=== PATIENT | female | born 1990 | race Caucasian/White ===

== ENCOUNTER 2018-08-17 05:37 | Day surgery (SDC) | payer OTHER, MEDICAID ==
[2018-08-17] MEDS: ACETAMINOPHEN 500 MG TAB PO (07:13)
[2018-08-17] MEDS ORDERED: ROCURONIUM 50 MG INJ (07:18)
[2018-08-17] MEDS ORDERED: LIDOCAINE 2% (SDV) 5 ML INJ (07:18)
[2018-08-17] MEDS ORDERED: FENTAnyl 50 MCG/ML VIAL ×2 (07:18→08:32)
[2018-08-17] MEDS ORDERED: MIDAZOLAM 1 MG/ML 2 ML INJ (07:18)
[2018-08-17] MEDS ORDERED: PROPOFOL 20 ML ×2 (07:18→08:12)
[2018-08-17] MEDS ORDERED: ONDANSETRON 4 MG INJ (07:19)
[2018-08-17] MEDS ORDERED: FAMOTIDINE 20 MG INJ (07:19)
[2018-08-17] MEDS ORDERED: HYDROmorphONE 1 MG/5 ML IV SYRINGE IV (07:30)
[2018-08-17] MEDS ORDERED: DIPHENHYDRAMINE 50 MG INJ IV (07:30)
[2018-08-17] MEDS ORDERED: LABETALOL HCL 20MG INJ IV (07:30)
[2018-08-17] MEDS ORDERED: ALBUTEROL 0.083% (NEB) 2.5 MG/3 ML AMP HHN (07:30)
[2018-08-17] MEDS ORDERED: morphine (1 MG/ML) 10ML SYRINGE IV ×2 (07:30)
[2018-08-17] MEDS ORDERED: MEPERIDINE 25 MG INJ IV (07:30)
[2018-08-17] MEDS ORDERED: OXYCODONE/ACETAMINOPHEN (5/325) TAB PO ×2 (07:30)
[2018-08-17] MEDS ORDERED: FENTAnyl 50 MCG/ML VIAL IV ×2 (07:30)
[2018-08-17] MEDS ORDERED: ONDANSETRON 4 MG INJ IV (07:30)
[2018-08-17] MEDS ORDERED: DEXAMETHASONE 4 MG/ML 5 ML INJ (07:42)
[2018-08-17] MEDS: BUPIVACAINE 0.5%/EPI (SDV) 30 ML INJ (07:58)
[2018-08-17] MEDS ORDERED: GLYCOPYRROLATE 0.4 MG INJ (08:01)
[2018-08-17] MEDS ORDERED: NEOSTIGMINE 10 MG INJ (08:01)
[2018-08-17] MEDS: HYDROmorphONE 1 MG/5 ML IV SYRINGE IV (09:15)
== END 2018-08-17 10:30 | disposition home or self-care (01) ==
LOC: SDS 05:37
DX: Z30.2 Encounter for sterilization (principal); F12.90 Cannabis use, unspecified, uncomplicated; Z87.891 Personal history of nicotine dependence
CPT/HCPCS: 58661; 88302